=== PATIENT | female | born 1995 | race Caucasian/White ===

== ENCOUNTER 2024-12-18 21:06 | Emergency (ER) | payer OTHER, SELFPAY ==
[2024-12-18 21:15] VITALS: BP 186/108
[2024-12-18 21:44] LABS: Hematocrit 37.3 % (37.0-47.0); Hemoglobin 12.9 g/dL (12.0-16.0); Mean Corp Hgb Conc. 34.6 g/dL (33.0-37.0); Mean Corpuscular Volume 85.4 fL (81.0-99.0); Nucleated Red Blood Cells % 0 %; Platelet Count 249 10^3/uL (130-400); Red Cell Dist. Width 12.8 % (11.5-14.5)
[2024-12-18 22:06] LABS: ALT (SGPT) 13 U/L (0-35); AST (SGOT) 20 U/L (14-36); Albumin 4.2 g/dl (3.5-5.0); Alkaline Phosphatase 81 U/L (38-126); Blood Urea Nitrogen 11 mg/dl (7-17); Calcium 8.9 mg/dl (8.4-10.2); Carbon Dioxide 22 mmol/L (22-30); Chloride 107 mmol/L (98-107); Glucose 163 mg/dl (70-99); Potassium 3.6 mmol/L (3.5-5.1); Sodium 137 mmol/L (135-145); Total Protein 7.3 g/dl (6.3-8.2); eGFR > 60.00
[2024-12-18 22:08] LABS: Troponin I < 0.012 ng/ml
[2024-12-18 23:26] VITALS: BP 176/89
[2024-12-18 23:41] LABS: Urine Character Slightly Cloudy (Clear)
[2024-12-19] VITALS: BP 158/82
[2024-12-19 00:07] VITALS: BMI 55.0
[2024-12-19 00:35] LABS: Urine Red Blood Cell >100 /HPF (0-2); Urine White Cell 16-20 /HPF (0-5)
[2024-12-19 01:00] VITALS: BP 156/79
--- NOTE | 2024-12-19 01:14 | ED.GENMED ---
History of Present Illness
General
Chief Complaint: Chest Pain
Source: patient
Time Seen by Provider: 12/18/24 23:55
History of Present Illness
History of Present Illness:
Note:
CHIEF COMPLAINT(S)
- Rapid heart rate, numbness, tingling sensations, and dull chest pain.
HISTORY OF PRESENT ILLNESS
The patient is a 29-year-old female who experienced a sudden onset of symptoms around 3 PM, including a sensation described as 'ice' flowing through her body, which progressed to numbness in the pelvic area and tingling in the tongue. The patient
noted a rapid heart rate of approximately 130 beats per minute and elevated blood pressure during the episode. The symptoms have been recurrent throughout the day, including during transit to the hospital, accompanied by dull chest pain and
occasional sensations of being 'too hot.' These episodes were similar to those experienced previously, such as in September, where a visit to a different emergency department revealed severe urinary tract infection (UTI) corresponding to these symptoms.
The patient reported no fever, burning urination, or abnormal vaginal bleeding except for being on her menstrual period.
The patient also mentioned a recent change in contraceptive management, having resumed a progesterone-estrogen combination pill today after her menses stopped. The patient is on a control implant since April 2023 and started the pill last
month due to prolonged bleeding. Concerns were raised about whether her hormonal treatment might be contributing to her symptoms. She has a history of heavy menstrual periods and recent episodes of heart palpitations, increased blood pressure, and
occasional nausea and a reduced appetite today.
The patient is worried about possible cardiac causes for her symptoms, particularly in light of previous experiences with irregular heartbeats.
CHRONIC MEDICAL CONDITIONS SIGNIFICANTLY AFFECTING CARE
- History of dysmenorrhea and heavy menstrual bleeding.
SOCIAL DETERMINANTS AFFECTING HEALTH
The patient noted a history of job loss and resultant loss of insurance coverage, impacting her ability to maintain continuous medical care. She mentioned reliance on Medicaid which limited her access to her previous doctor and expressed financial
considerations in accessing care.
PAST MEDICAL HISTORY
- Previous episodes of heart palpitations and urinary tract infections.
- History of a right ovarian cyst and heavy menstrual bleeding.
MEDICATIONS
- On control implant and recently started on a low-dose progesterone-estrogen pill.
REVIEW OF SYSTEMS
- Cardiovascular: Rapid heart rate during symptoms, history of elevated blood pressure.
- Neurological: Numbness and tingling sensation in the tongue and pelvic area.
- Respiratory: Occasional sensations of feeling too hot.
- Gastrointestinal: Occasional nausea and reduced appetite today.
- Genitourinary: Heavy menstrual bleeding, currently on menstrual period, history of right ovarian cyst.
PHYSICAL EXAM
General: Alert, no acute distress.
Skin: Warm, dry.
Head: Normocephalic, atraumatic.
Neck: Supple, trachea midline.
Eye, Ears, Nose, Mouth, and Throat: Oral mucosa moist.
Cardiovascular: Regular rhythm, no murmurs, no edema.
Respiratory: Lungs clear to auscultation, respirations are non-labored.
Gastrointestinal: Abdomen soft, non-tender, nondistended.
Back: Normal range of motion, normal alignment.
Musculoskeletal: Normal range of motion, normal strength.
Neurological: Alert and oriented to person, place, time, and situation, no focal neurological deficits observed.
Psychiatric: Cooperative, appropriate mood and affect.
PROBLEM LIST
Acute:
- Rapid heart rate.
- Numbness and tingling.
- Dull chest pain.
Chronic:
- Heavy menstrual bleeding.
PLAN
- Monitor heart rhythm and vital signs.
- Review electrolyte panel and urine sample to rule out any imbalances or infection.
- Re-evaluate the necessity of the combined hormonal contraceptive, focusing on the need for progesterone rather than the estrogen component.
- Provide information on local family medicine residency clinic for ongoing care, particularly for gynecologic assessments and management.
- Consider cardiovascular assessment including potential need for EKG monitoring to assess for arrhythmias.
DIFFERENTIAL DIAGNOSIS
The Differential Diagnosis includes, in no particular order and is not limited to:
- Cardiac arrhythmia (including possible atrial fibrillation or supraventricular tachycardia)
- Anxiety or panic attack
- Hormonal imbalance due to contraceptive use
- Hyperthyroidism
- Pheochromocytoma
- Electrolyte imbalance
- Acute coronary syndrome
- Menstrual-related symptoms
- Hyperventilation syndrome
- Perimenopausal symptoms
Disposition:
SUMMARY OF ENCOUNTER
The patient is a 29-year-old female presenting with rapid heart rate, numbness, tingling sensations, and dull chest pain. She has experienced these symptoms previously, notably associated with a severe urinary tract infection. Today, urine analysis
reveals 16 to 20 white blood cells, moderate bacteria, 2+ leukocyte esterase, and 4+ blood, complicated by her menstrual period. She has a control implant and resumed oral contraceptives today. Her vital signs are stable, and her EKG shows a
normal sinus rhythm with no significant abnormalities. A decision was made to treat her urinary tract infection with antibiotics and to refer her for a review of her hormonal therapy plan.
DISPOSITION
Discharge
ASSESSMENT
Possible urinary tract infection exacerbated by menstrual blood contamination in urinary analysis, stable cardiac assessment with no acute abnormalities found.
PLAN
- Start treatment with sulfamethoxazole and trimethoprim (Bactrim) for urinary tract infection. Update: Patient was started on Macrobid, advised her to continue
- Referral to primary care physician and gynecology for review of hormonal therapy plans.
- Ensure patient is stable for outpatient management. Referring patient to the [facility]
INDEPENDENT REVIEW OF LABS AND INTERPRETATION OF TESTS
My independent review of urine analysis indicates 16 to 20 white blood cells, moderate bacteria presence, 2+ leukocyte esterase, and 4+ blood (noted to be potentially menstrual). My independent review of EKG indicates normal sinus rhythm with no QT
or ST segment changes and normal intervals. My independent review of chemistry, including a CMP, is normal except for a mild glucose elevation at 163 mg/dL.
PATIENT EDUCATION AND COUNSELING
Discussed the possibility of symptoms being related to hormonal therapy and instructed to follow up with primary care and gynecology to assess current contraceptive use.
FOLLOW-UP INSTRUCTIONS
Instructed to follow up with primary care and gynecology to assess hormonal therapy plan and further investigate symptoms origins.
MEDICATION RECONCILIATION
- Macrobid prescribed for urinary tract infection.
MEDICAL DECISION MAKING
1. Number and Complexity of Problems Addressed: Chronic conditions affecting care include a history of dysmenorrhea and heavy menstrual bleeding. Differential diagnosis includes possible cardiac arrhythmia, anxiety, hormonal imbalance,
hyperthyroidism, electrolyte imbalance, acute coronary syndrome, menstrual-related symptoms, hyperventilation syndrome, and perimenopausal symptoms.
2. Data:
Category 1:
- My independent review of urine analysis indicates infection indicators.
- My independent review of EKG indicates a normal sinus rhythm.
- My independent review of chemistry is normal with a mild glucose elevation.
Category 3:
- Discussion regarding management and referral needs with consideration for outpatient follow-up.
3. Risk: Consideration of Admission/Observation: Escalation of care including admission/observation was considered given the complexity and risk of the patients presenting complaint, exam findings, and underlying comorbidities. However, ultimately
the patient is safe for outpatient management with close follow-up. Reasoning: Work-up reassuring, does not reveal any acute life-threatening processes, patients symptoms well controlled upon reevaluation, reexamination is reassuring, vitals are
stable, patient agreeable with discharge, reliable for follow-up. Prescription medication was prescribed (sulfamethoxazole and trimethoprim).
DIAGNOSIS
- Urinary tract infection, unspecified (N39.0)
- Dysmenorrhea (N94.6)
- Hormonal imbalance due to contraceptive use (T38.6X1A)
- palpitations
Phy Exam
Physical Exam
Physical Exam:
.
Scores
Heart Score for Chest Pain Patients
STEMI patient?: Not applicable
Course
Orders/Labs/Results
Orders:
Orders
12/18/24 21:13
Electrocardiogram (*1) Urgent
Reason for Study: Chest Pain
EKG- Treatment ONCE
12/18/24 21:31
Complete Blood Count/With Diff Urgent
Comprehensive Metabolic Panel Urgent
Troponin I Urgent
12/18/24 23:32
Urinalysis Reflex To Culture Urgent
Date Specimen was Collected: 12/18/24
Time Specimen was Collected: 21:13
Urine Microscopic Reflex Cult Urgent
Urine Culture Urgent
ELFEGO Source: U
Specimen Description:
Date Specimen was Collected: 12/18/24
Time Specimen was Collected: 21:13
Abnormal Lab Results
12/18/24 12/18/24
21:31 23:32
WBC 14.9 H 10^3/uL
(4.8-10.8)
Abs Immat Gran (auto) 0.1 H 10^3/uL
(0-0.05)
Absolute Neuts (auto) 12.5 H 10^3/uL
(1.4-6.5)
Absolute Monos (auto) 0.8 H 10^3/uL
(0.1-0.6)
Neutrophils % 83.7 H %
(42.2-75.2)
Lymphocytes % 10.9 L %
(20.5-51.1)
Glucose 163 H mg/dl
(70-99)
Ur Occult Blood Reflex 4+ A
(Negative)
Leukocyte Esterase Rfl 2+ A
(Negative)
Urine RBC >100 A /HPF
(0-2)
Urine WBC (Reflex) 16-20 A /HPF
(0-5)
Urine Bacteria (Reflex) Moderate A
(Negative)
Urine Albumin (Reflex) 3+ A
(Neg - Trace)
12/18/24 21:31
12/18/24 21:31
Vital Signs
Initial and Last Documented VS:
Initial Vital Signs
Temp Pulse Resp Pulse Ox
98.9 F 114 18 98
12/18/24 21:08 12/18/24 21:08 12/18/24 21:08 12/18/24 21:08
Last Documented Vital Signs
Temp Pulse Resp BP Pulse Ox
98.9 F 82 19 156/79 97
12/18/24 21:08 12/19/24 01:00 12/19/24 01:00 12/19/24 01:00 12/19/24 01:15
*Pulse Oximetry
SaO2: 97
Oxygen Mode of Delivery: Room air
Patient hypoxic: no
*[place] Interpretation
Rate: normal
Interpretation: normal
Rhythm: sinus
*Critical Care Note
Total Time (30-74mins, 75-104mins- exclusive of procedures): Not Applicable
ED Attending Note
-
Portions of this chart may have been created with voice recognition software.� Occasional wrong word or��sound alike� substitutions may have occurred due to the inherent limitations of voice recognition software.
Discharge Plan
Departure
Patient Disposition: Home (Routine Discharge)
Date of Disposition: 12/19/24
Time of Disposition: 01:22
Patient with high blood pressure during this ER visit?: Yes
Discharge Problem:
UTI (urinary tract infection), Palpitations
Instructions: Urinary tract infections in adults, Palpitations, BLOOD PRESSURE
Referrals:
Family Residency Program [Provider Group]
NONE,* [Family Provider, Internal Medicine]
Activity Restrictions/Additional Instructions:
Please call the family residency program on Saturday for follow-up and reevaluation. Return immediately for chest pain, shortness of breath, weakness of any kind, fevers, back pain, vomiting or any other concerns. Please drink plenty of fluids.
Please talk to your doctor about further management of your control.
Your blood pressure was elevated while in the Emergency Department, please have your doctor re-evaluate it in the next 48 hours as untreated hypertension may lead to serious complications.
Interventions
Interventions:
*Risk Screen - Suicide Last Done: 12/18/24 21:12
*General Assessment Last Done: 12/18/24 23:21
*Neglect/Abuse Screening Last Done: 12/18/24 21:12
*ED- Fall Risk Assessment Last Done: 12/18/24 23:21
*ED COVID-19 Vaccine History Last Done: 12/18/24 23:21
ED- Cardiac Assessment Last Done: 12/18/24 23:21
Discharge Date and Time
Print Language: [place]
[2024-12-19 01:35] VITALS: BP 141/77
--- NOTE | 2024-12-19 01:38 | ED.GENMED ---
History of Present Illness
General
Chief Complaint: Chest Pain
Time Seen by Provider: 12/18/24 23:55
Course
Orders/Labs/Results
Orders:
Orders
12/18/24 21:13
Electrocardiogram (*1) Urgent
Reason for Study: Chest Pain
EKG- Treatment ONCE
12/18/24 21:31
Complete Blood Count/With Diff Urgent
Comprehensive Metabolic Panel Urgent
Troponin I Urgent
12/18/24 23:32
Urinalysis Reflex To Culture Urgent
Date Specimen was Collected: 12/18/24
Time Specimen was Collected: 21:13
Urine Microscopic Reflex Cult Urgent
Urine Culture Urgent
ELFEGO Source: U
Specimen Description:
Date Specimen was Collected: 12/18/24
Time Specimen was Collected: 21:13
Abnormal Lab Results
12/18/24 12/18/24
21:31 23:32
WBC 14.9 H 10^3/uL
(4.8-10.8)
Abs Immat Gran (auto) 0.1 H 10^3/uL
(0-0.05)
Absolute Neuts (auto) 12.5 H 10^3/uL
(1.4-6.5)
Absolute Monos (auto) 0.8 H 10^3/uL
(0.1-0.6)
Neutrophils % 83.7 H %
(42.2-75.2)
Lymphocytes % 10.9 L %
(20.5-51.1)
Glucose 163 H mg/dl
(70-99)
Ur Occult Blood Reflex 4+ A
(Negative)
Leukocyte Esterase Rfl 2+ A
(Negative)
Urine RBC >100 A /HPF
(0-2)
Urine WBC (Reflex) 16-20 A /HPF
(0-5)
Urine Bacteria (Reflex) Moderate A
(Negative)
Urine Albumin (Reflex) 3+ A
(Neg - Trace)
12/18/24 21:31
12/18/24 21:31
Vital Signs
Initial and Last Documented VS:
Initial Vital Signs
Temp Pulse Resp Pulse Ox
98.9 F 114 18 98
12/18/24 21:08 12/18/24 21:08 12/18/24 21:08 12/18/24 21:08
Last Documented Vital Signs
Temp Pulse Resp BP Pulse Ox
98.9 F 91 21 156/79 97
12/18/24 21:08 12/19/24 01:30 12/19/24 01:30 12/19/24 01:00 12/19/24 01:30
*Pulse Oximetry
SaO2: 97
Oxygen Mode of Delivery: Room air
ED Attending Note
-
Portions of this chart may have been created with voice recognition software.� Occasional wrong word or��sound alike� substitutions may have occurred due to the inherent limitations of voice recognition software.
Discharge Plan
Departure
Patient Disposition: Home (Routine Discharge)
Date of Disposition: 12/19/24
Time of Disposition: 01:22
Patient with high blood pressure during this ER visit?: Yes
Discharge Problem:
UTI (urinary tract infection), Palpitations
Instructions: Urinary tract infections in adults, Palpitations, BLOOD PRESSURE
Referrals:
Family Residency Program [Provider Group]
NONE,* [Family Provider, Internal Medicine]
Stand Alone Forms: Return to Work
Activity Restrictions/Additional Instructions:
Please call the family residency program on Saturday for follow-up and reevaluation. Return immediately for chest pain, shortness of breath, weakness of any kind, fevers, back pain, vomiting or any other concerns. Please drink plenty of fluids.
Please talk to your doctor about further management of your control.
Your blood pressure was elevated while in the Emergency Department, please have your doctor re-evaluate it in the next 48 hours as untreated hypertension may lead to serious complications.
Interventions
Interventions:
*Risk Screen - Suicide Last Done: 12/18/24 21:12
*General Assessment Last Done: 12/18/24 23:21
*Neglect/Abuse Screening Last Done: 12/18/24 21:12
*ED- Fall Risk Assessment Last Done: 12/18/24 23:21
*ED COVID-19 Vaccine History Last Done: 12/18/24 23:21
ED- Cardiac Assessment Last Done: 12/18/24 23:21
Discharge Date and Time
Print Language: [place]
== END 2024-12-19 01:45 | disposition home or self-care (01) ==
LOC: EMR 21:06
PROVIDERS: EMERGENCY PHYSICIAN Emergency Medicine
DX: N39.0 Urinary tract infection, site not specified (principal); R00.2 Palpitations; R07.89 Other chest pain; I10 Essential (primary) hypertension; Z79.3 Long term (current) use of hormonal contraceptives
CPT/HCPCS: 99284; 80053; 81003; 81015; 84484; 85025; 87077; 87086; 87147; 93005